=== PATIENT | male | born 1980 | race Caucasian/White ===

== ENCOUNTER 2023-10-13 08:39 | Emergency (ER) | payer OTHER ==
[~2023-10-13] VITALS: Ht 180.3 cm; Wt 122.5 kg
[2023-10-13 11:02] LABS: HEMATOCRIT 40.4 % (39.0-48.0); HEMOGLOBIN 14.1 g/dL (13-16.00); MEAN CELL VOLUME 90.7 fL (80.0-100.00); MEAN CORPUSCULAR HEMOGLOBIN 31.5 pg (27.00-32.0); MEAN CORPUSCULAR HGB CONC 34.8 g/dl (32.0-36.0); PLATELET COUNT 288 K/uL (150-450); RED BLOOD COUNT 4.46 M/uL (4.00-6.00); RED CELL DISTRIBUTION WIDTH 12.3 % (11.5-14.5)
[2023-10-13 11:02] LABS: URINE APPEARANCE Clear; URINE BILIRRUBIN Negative (NEGATIVE); URINE BLOOD Negative; URINE COLOR Yellow; URINE GLUCOSE Negative (NEGATIVE); URINE LEUKOCYTE Trace; URINE NITRATE Negative; URINE PROTEIN Negative (NEGATIVE)
[2023-10-13 11:06] LABS: URINE BACTERIA 193.9 uL (0.0-1933); URINE RBC 14.3 uL (0.0-20.8); URINE WBC 8.7 uL (0.0-23.2)
[2023-10-13 12:34] LABS: CALCIUM 9.4 mg/dL (8.5-10.1); CREATININE SERUM 1.01 mg/dL (0.70-1.30); GFR 81.01; POTASSIUM 3.96 mEq/L (3.5-5.1)
== END 2023-10-13 14:21 | disposition home or self-care (01) ==
LOC: ER 08:39
PROVIDERS: General Practice
DX: M62.830 Muscle spasm of back (principal)